=== PATIENT | male | born 1930 | race Caucasian/White ===

== ENCOUNTER 2016-12-18 05:35 | Emergency (ER) | payer MEDICARE ==
[2016-12-18 05:45] VITALS: BP 172/55
--- NOTE | 2016-12-18 05:58 | ERNOTE ---
Back Pain ER HPI Date of Service: 12/18/16 Presenting Symptoms: hx chronic back pain Time Seen by Provider: 12/18/16 05:57 Source: patient, family Immunizations: IMMUNIZATION HX Immunizations Up to Date Yes Allergies/Adverse Reactions: Allergies No Known Allergies Allergy (Verified 12/18/16 05:45) Home Medications: HOME MEDICATIONS Aspirin 325 mg PO DAILY 11/13/12 [Last Taken 11/29/12 08:00] Esomeprazole Magnesium [Nexium] 40 mg PO DAILY 11/13/12 [Last Taken 11/29/12 08: 00] Levothyroxine Sodium [Synthroid] 150 mcg PO DAILY 11/13/12 [Last Taken 11/29/12 08:00] Metoprolol Tartrate [Lopressor] 50 mg PO BID 11/13/12 [Last Taken 11/29/12 08:00 ] Simvastatin [Zocor] 40 mg PO DAILY 11/13/12 [Last Taken 11/28/12 21:00] Tamsulosin HCl [Flomax] 0.4 mg PO DAILY 11/13/12 [Last Taken 11/28/12 21:00] Cilostazol [Pletal] 50 mg PO BID #0 tablet 11/14/12 [Last Taken 11/29/12 08:00] glipiZIDE [Glucotrol] 10 mg PO BIDAC #0 tablet 12/01/12 [Last Taken Unknown] sitaGLIPtin PHOSPHATE [Januvia] 50 mg PO DAILY #0 12/01/12 [Last Taken 08:00] Metaxalone [Skelaxin] 800 mg PO TID #15 tablet 12/18/16 [Last Taken Unknown] Narrative: LEFT LOWER BACK PAIN INTO LEFT LEG SINCE YESTERDAY. NO KNOWN TRAUMA. HE NOTICED IT WHEN SWINGING HIS LEG OVER THE SYSTEMS TESTER TO GET OFF IT YESTERDAY. HE HAS HAD A HX OF OCC. BACK PAIN AND HAD XRAY IN 2013 SHOWING LUMBAR DGN CHANGES. HE DENIES ANY WEAKNESS OR NUMBNESS OR LOSS OF BOWEL OR BLADDER FUNCTION. Review of Systems - Review of Systems Constitutional: Present: See HPI EYE: Present: no symptoms reported ENT: Present: no symptoms reported Respiratory: Present: no symptoms reported Cardiology: Present: no symptoms reported Gastrointestinal/Abdominal: Present: no symptoms reported Genitourinary: Present: no symptoms reported Musculoskeletal: Present: See HPI, back pain Skin: Present: no symptoms reported Neurological: Present: no symptoms reported Endocrine: Present: no symptoms reported Hematologic/Lymphatic: Present: no symptoms reported Psych: Present: no symptoms reported All Other Systems: All systems neg except as marked - Patient's Past Medical History Patient History - Medical: Diabetes Type 2 Patient History - Cardiac/Respiratory: Hypertension, Hyperlipidemia, CPAP/BiPAP Home Use, Sleep Apnea Patient History - Cancer: Prostate Patient History - Surgical Procedures: Appendectomy - Social History Living Situations: home Smoking Status: Former smoker Alcohol Use: none Drug Use: none - Immunizations Immunizations Up to Date: Yes Physical Exam - Physical Exam General Appearance: Present: wd/wn, alert, no apparent distress - SHORTER, 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 Back Exam: Present: normal inspection, no CVA tenderness, no vertebral tenderness, other - HE HAS TENDERNESSS TO LEFT LATERAL LUMBAR PERISPINOUS MUSCLE DOWN TO LEFT BUTTOCK AREA. WITH NO SIGN OF SWELLING OR CONTUSION OR RASH. Extremity Exam: Present: normal inspection, non-tender, normal range of motion, no edema Neurological Exam: Present: alert, oriented DTR: N=norm/NB=norm/brisk/A=abs/DD=dull/dimin/HC=hyperactive: Knee (R): Normal, Knee (L): Normal Skin Exam: Present: normal color, other - HE CURRENTLY HAS SOME SLIPPERY OINTMENT TO LOW BACK AREA (APPLIED BY FAMILY BUT HE DOES NOT KNOW WHAT) ED Progress - Vital Signs Vital Signs: Vital Signs 12/18/16 05:40 Temperature 36.8 C Pulse Rate 104 H Respiratory 22 H Rate Blood Pressure 172/55 O2 Sat by Pulse 95 Oximetry - Progress/Reassessment Chief Complaint: Back Pain Plan - Plan Plan: TORADOL 30 MG IM AND NORFLEX 60 MG IM GIVEN. REVIEWED HIS CURRENT MEDS WHICH ARE MUCH DIFFERENT THAN WHAT IS CURRENTLY IN THE COMPUTER. Departure Clinical Impression: Low back pain potentially associated with radiculopathy - Departure Disposition: Home Follow Up Needed Condition: Fair Instructions: Low Back Sprain With Rehab-SportsMed, Back Pain, Adult, Easy-to- Read Additional Instructions: TRIAL OF REST AND GENTLE ACTIVITY. PAY SPECIAL ATTENTION TOO PROPER POSTURE , KEEPING BACK STRAIGHT AND ONLY LIFTING OR BENDING AT THE KNEES AND HIPS AND NEVER WITH THE BACK. TRIAL OF ICE FOR 20 MINS FOLLOWED BY HEAT FOR 20 MINS EVERY 4 HOURS TO SORE AREA. USING BIO-FREEZE OR PERFORM SPRAY OR OINTMENT ALSO MAY HELP COMFORT. THE MEDICATIONS HEAL NOTHING, ONLY TIME AND AVOIDANCE OR AGGRAVATING THE AREA FURTHER DO THAT. TRIAL OF IBUPROFEN 400-600 MG EVERY 8 HOURS WITH FOOD IN YOUR STOMACH AND MUSCLE RELAXANT FOR 5 -7 DAYS . IF STILL HAVING PROBLEMS OR IF YOU ARE WORSE FOLLOW UP WITH YOUR FAMILY DOCTOR FOR FURTHER EVALUATION. MUSCLE RELAXANT MAY CAUSE DROWSINESS SO AVOID ACTIVITY THAT REQUIRES ALERTNESS, LIKE OPERATING MACHINERY OR DRIVING, WHILE USING THEM. Referrals: Polina Hall MD [Primary Care Provider] - Prescriptions: Metaxalone [Skelaxin] 800 mg PO TID #15 tablet
--- OUTSIDE RECORDS SUMMARY | 2016-12-18 06:05 | XMS REPORT | Continuity of Care Document ---
:1930 Author Organization [facility] ([facility]) Address [address] [place] [address] Phone [phone] Care Team Providers Name Role Phone Unavailable Primary Care Provider Unavailable Source Comments This disclosure is being made pursuant to the Care Everywhere program, applicable federal and state laws, and may not contain all informaitonavailable regarding this patient.[facility] ([facility]) Active Allergies and Adverse Reactions Not on File Current Medications Not on file Active Problems Not on file Social History Tobacco Use Types Packs/Day Years Used Date Never Assessed Plan of Care Health Maintenance Due Date Last Done Comments Hepatitis B Vaccine (1 of 3 - Primary Series) 1930 Tdap Vaccine 1941 Lipid Disorder Screening 1948 Td Vaccine 1948 Zoster Vaccine 1990 Pneumococcal Vaccine (1 of 2 - PCV13) 1995 Influenza Vaccine: Seasonal (#1) 02/15/2016 Results from Last 3 Months Not on file
[2016-12-18] MEDS ORDERED: KETOROLAC TROMETHAMINE 30 MG/ML VIAL IM ONE (06:07)
[2016-12-18] MEDS ORDERED: ORPHENADRINE CITRATE 30 MG/ML VIAL IM ONE (06:08)
[2016-12-18] MEDS ORDERED: KETOROLAC TROMETHAMINE 30 MG/ML VIAL ONE (06:15)
[2016-12-18] MEDS ORDERED: ORPHENADRINE CITRATE 30 MG/ML VIAL ONE (06:15)
== END 2016-12-18 06:34 | disposition home or self-care (01) ==
LOC: ER 05:35
DX: M54.5 Low back pain (principal); Z85.46 Personal history of malignant neoplasm of prostate

== ENCOUNTER 2016-12-21 12:24 | Emergency (ER) | payer MEDICARE ==
--- NOTE | 2016-12-21 12:54 | ERNOTE ---
Back Pain ER HPI Source: patient, family Exam Limitations: no limitations Immunizations: IMMUNIZATION HX Immunizations Up to Date Yes History of Influenza Vaccine Yes Hx Pneumococcal Vaccination Yes Allergies/Adverse Reactions: Allergies No Known Allergies Allergy (Verified 12/21/16 12:34) Home Medications: HOME MEDICATIONS Aspirin 325 mg PO DAILY 11/13/12 [Last Taken 11/29/12 08:00] Esomeprazole Magnesium [Nexium] 40 mg PO DAILY 11/13/12 [Last Taken 11/29/12 08: 00] Levothyroxine Sodium [Synthroid] 150 mcg PO DAILY 11/13/12 [Last Taken 11/29/12 08:00] Metoprolol Tartrate [Lopressor] 50 mg PO BID 11/13/12 [Last Taken 11/29/12 08:00 ] Simvastatin [Zocor] 40 mg PO DAILY 11/13/12 [Last Taken 11/28/12 21:00] Tamsulosin HCl [Flomax] 0.4 mg PO DAILY 11/13/12 [Last Taken 11/28/12 21:00] Cilostazol [Pletal] 50 mg PO BID #0 tablet 11/14/12 [Last Taken 11/29/12 08:00] glipiZIDE [Glucotrol] 10 mg PO BIDAC #0 tablet 12/01/12 [Last Taken Unknown] sitaGLIPtin PHOSPHATE [Januvia] 50 mg PO DAILY #0 12/01/12 [Last Taken 08:00] Metaxalone [Skelaxin] 800 mg PO TID #15 tablet 12/18/16 [Last Taken Unknown] Narrative: Patient was seen in the ER three days ago for right lower back pain, he had not had an injury at that time, 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 He was send home on muscle relaxant and ibuprofen, took the medications for the first 24 hours, none the last 48hrs as his daughter told him about the side effects. He took tylenol 650mg 2-3 tablets every four hours for a couple of days , none the last 48 hours. His back pain got better, but yesterday he fell twice, not sure how it happened , he might have gotten dizzy, not sure about loss of consciousness, doesn't think he hit his head. He was able to get up by himself each time. He denies any new pain but his back pain was aggravated again, severe this morning, but minimal since coming here, none laying in bed currently Timing: Reports: intermittent Location of pain: Reports: lower back. Denies: radiating to rt thigh/leg Modifying Factors - (Worsens): Reports: movement flexion Associated Symptoms: Denies: fever/chills, constipation/incontinence, nausea/ vomiting, lightheadedness Review of Systems - Review of Systems Constitutional: Absent: recent illness, fever ENT: Absent: sore throat Respiratory: Present: shortness of breath - baseline. Absent: cough Cardiology: Absent: chest pain Gastrointestinal/Abdominal: Absent: nausea, vomiting, abdominal pain Genitourinary: Present: other - no new symptoms Musculoskeletal: Present: See HPI Neurological: Absent: headache, weakness, numbness - Patient's Past Medical History Patient History - Medical: Diabetes Type 2 Patient History - Cardiac/Respiratory: Hypertension, Hyperlipidemia, CPAP/BiPAP Home Use, Sleep Apnea Patient History - Cancer: Prostate Patient History - Surgical Procedures: Appendectomy Patient History - Other: None - Social History Living Situations: home Abuse History: No History of abuse Psych History: No pertinent hx Smoking Status: Former smoker Alcohol Use: none Drug Use: none - Immunizations Immunizations Up to Date: Yes Hx Pneumococcal Vaccination: Yes History of Influenza Vaccine: Yes Physical Exam - Physical Exam General Appearance: Present: wd/wn, alert, no apparent distress, obese Ears, Nose, Throat: Present: normal ENT inspection, normal pharynx, other - no obvious head injury, no pain on palpation Neck: Present: normal inspection, nontender, supple, full range of motion Respiratory: Present: no respiratory distress, lungs clear, decreased breath sounds Cardiovascular/Chest: Present: regular rate, rhythm, no murmur Gastrointestinal/Abdominal: Present: nontender, nondistended, soft, other - hip stable Back Exam: Present: normal inspection, no CVA tenderness, no vertebral tenderness, other - tender right lower lumbar paravertebral tenderness, pain on right straight leg raise Neurological Exam: Present: alert, oriented, normal mood/affect, no motor/ sensory deficits Skin Exam: Present: normal color, warm/dry ED Progress - Results and Orders Patient's Lab Results:: I have reviewed the patient's lab results. - Vital Signs Patient's Vital Signs:: I have reviewed the patient's vital signs. Vital Signs: Vital Signs 12/21/16 12/21/16 12:29 12:49 Temperature 36.9 C Pulse Rate 107 H 94 Respiratory 16 15 Rate Blood Pressure 131/71 120/64 O2 Sat by Pulse 94 95 Oximetry - X-Ray X-Ray #1 X-Ray: lumbosacral - chronic no acute changes Interpretation: Reviewed by me - Progress/Reassessment Chief Complaint: Back Pain Progress Note-Subjective: 12/21/16 14:53 patient comfortable after toradol, discussed labs and Xray results Departure Clinical Impression: Arthritis, lumbar spine, Sciatica of right side - Departure Disposition: Home self-care Condition: Good Instructions: Sciatica, [id number] Additional Instructions: take tylenol (650mg) one every four hours as needed for pain call your doctor for follow up Referrals: Polina Hall MD [Primary Care Provider] -
--- OUTSIDE RECORDS SUMMARY | 2016-12-21 13:07 | XMS REPORT | Continuity of Care Document ---
:1930 Author Organization [facility] ([facility]) Address [address] [place] [address] Phone [phone] Care Team Providers Name Role Phone Unavailable Primary Care Provider Unavailable Source Comments This disclosure is being made pursuant to the Care Everywhere program, applicable federal and state laws, and may not contain all informaitonavailable regarding this patient.[facility] ([facility]) Active Allergies and Adverse Reactions Not on [...]
[2016-12-21 13:25] LABS: Hematocrit 41.7 % (42.0-52.0); Hemoglobin 14.2 gm/dL (13.5-18.0); Mean Corpuscular Hgb Conc 34.1 g/dl (32-36); Mean Platelet Volume 9.6 fl (6.0-9.5); Neutrophil # 7.2 K/mm3 (1.3-6.0); Neutrophil % 68.7 % (42-75.0); Platelet Count 331 K/mm3 (150-450); Red Blood Count 4.74 M/mm3 (4.7-6.0); Red Cell Distribution Width 14.7 % (11.5-14.0); White Blood Count 10.5 K/mm3 (4.0-10.5)
[2016-12-21 13:37] LABS: ALT 61 U/L (19-67); AST 52 U/L (0-48); Albumin * 3.5 gm/dl (3.4-5.0); Alkaline Phosphatase * 100 U/L (50-170); Anion Gap 14.5 mmol/L (6.8-13.8); BUN/Creatinine Ratio 16.4 (9.0-21.6); Bilirubin, Total 0.5 mg/dL (0.0-1.1); Blood Urea Nitrogen 20 mg/dL (6-23); Ca. Corrected For Albumin 9.2 mg/dL (8.4-10.2); Calcium * 9.1 mg/dL (7.9-10.9); Carbon Dioxide 25.7 mmol/L (24-32.6); Chloride 102 mmol/L (97-106); Glucose * 237 mg/dL (70-110); Potassium 4.2 mmol/L (3.4-4.6); Sodium 138 mmol/L (132-142); Total Protein 7.7 gm/dL (6.2-8.2)
[2016-12-21] MEDS ORDERED: KETOROLAC TROMETHAMINE 30 MG/ML VIAL ONE (13:56)
[2016-12-21] MEDS ORDERED: KETOROLAC TROMETHAMINE 30 MG/ML VIAL IM ONE (13:56)
[2016-12-21 15:49] VITALS: BP 152/86
== END 2016-12-21 15:00 | disposition home or self-care (01) ==
LOC: ER 12:24
DX: M46.86 Other specified inflammatory spondylopathies, lumbar region (principal); M54.31 Sciatica, right side; Z85.46 Personal history of malignant neoplasm of prostate; E11.9 Type 2 diabetes mellitus without complications; I10 Essential (primary) hypertension; E78.5 Hyperlipidemia, unspecified
CPT/HCPCS: 36415; 72110; 80053; 85025; 96372; 99284; G0480